=== PATIENT | male | born 2000 | race African-American/Black ===

== ENCOUNTER 2024-10-21 09:36 | Emergency (ER) | payer SELFPAY ==
[2024-10-21] MEDS ORDERED: HALOPERIDOL LACT 5 MG/ML INJ ONE (10:22)
[2024-10-21 10:34] LABS: Absolute Basophils 0.1 K/uL (0-0.5); Absolute Eosinophils 0.1 K/uL (0-0.5); Absolute Lymphocytes (CBC) 3.3 K/uL (0.7-4.9); Absolute Monocytes 0.5 K/uL (0.1-1.3); Absolute Neutrophil 1.5 K/uL (1.8-8.0); Basophils % 1.1 % (0-1.3); Eosinophils % 1.4 % (0-4.4); Hematocrit 44.8 % (39.6-49.0); Hemoglobin 15.8 g/dL (13.6-17.9); Lymphocytes % 60.5 % (15.3-44.8); MCH 32.5 pg (27.0-35.0); MCHC 35.3 g/dL (32.0-36.0); MCV 92.2 fL (80-100); MPV 7.8 fL (7.6-11.3); Monocytes % 9.3 % (3.3-12.3); Neutrophils % 27.7 % (41.7-73.7); Nucleated Red Blood Cells % 0.2 % (0-0); Platelets 272 thou/uL (152-406); RBC Red Blood Cell Count 4.86 M/uL (4.33-5.43); Red Cell Distribution Width 12.7 % (12.1-15.2)
[2024-10-21 10:43] LABS: PT Prothrombin Time 11.1 SECONDS (10-13.0); PTT, Activated Partial Thromb 32.7 SECONDS (27.2-37.4); Protime INR 0.97
[2024-10-21 10:46] LABS: Barbiturates NEGATIVE (NEGATIVE); Benzodiazepines NEGATIVE (NEGATIVE); Cocaine NEGATIVE (NEGATIVE); METHAMPHETAM NEGATIVE (NEGATIVE); Methadone NEGATIVE (NEGATIVE); Opiates NEGATIVE (NEGATIVE); Phencyclidine NEGATIVE (NEGATIVE); THC Cannibis POSITIVE (NEGATIVE)
[2024-10-21 10:55] LABS: ALT/SGPT 23 U/L (16-61); AST/SGOT 19 U/L (15-37); Albumin 4.4 g/dL (3.4-5.0); Albumin/Globulin Ratio 1.1 (1.1-1.8); Alkaline Phosphatase 78 U/L (45-117); Anion Gap 10.3 mEq/L (5.0-15.0); BUN Blood Urea Nitrogen 8 mg/dL (7-18); Bicarbonate 24 mEq/L (21-32); Bilirubin Direct 0.2 mg/dL (0-0.2); Bilirubin Indirect, Calculated 0.7 mg/dL (0.2-0.8); Bilirubin Total 0.9 mg/dL (0.2-1.0); Globulin 4.1 g/dL (2.3-3.5); Glomerular Filtration Rate 68 ml/min (=/>90); Glucose Level 110 mg/dL (74-106); Potassium 3.3 mEq/L (3.5-5.1); Protein, Total 8.5 g/dL (6.4-8.2); Sodium Level 136 mEq/L (136-145)
[2024-10-21] MEDS ORDERED: dexAMETHasone 10 MG/ML VIAL ONE (11:10)
[2024-10-21] MEDS ORDERED: methocarbamoL 500 MG TAB ONE (11:10)
[2024-10-21 12:41] LABS: Differential Total Cells Count 100; Segmented Neutrophils 26 % (40-80)
[2024-10-21 12:42] LABS: Atypical Lymphocytes 12 %; Blood Morphology Comment NOT SEEN (NOT SEEN); Eosinophils 2 % (0-3); Lymphocytes 53 % (15-42); Monocytes 7 % (0-10); Platelet Estimate ADEQ
--- NOTE | 2024-10-21 17:02 | ER ---
Nurse's Notes [facility] Name: Justo Campbell Age: 23 yrs Sex: Male : 2000 Arrival Date: 10/21/2024 Time: 09:36 Bed 20 Private MD: Diagnosis: Chronic back pain;Adjustment disorder Presentation: 10/21 09:45 Chief complaint: Patient states: Left low back pain, radiates up to head x 1 year. jl Coronavirus screen: At this time, the client does not indicate any symptoms associated with coronavirus-19. Ebola Screen: No symptoms or risks identified at this time. Initial Sepsis Screen: Does the patient meet any 2 criteria? No. Patient's initial sepsis screen is negative. Does the patient have a suspected source of infection? No. Patient's initial sepsis screen is negative. Risk Assessment: Do you want to hurt yourself or someone else? Patient reports no desire to harm self or others. Onset of symptoms was 2023. 09:45 Method Of Arrival: Wheelchair [facility] 09:45 Acuity: MUKESH 4 jl7 09:53 Note Pt expressed suicidal thoughts to MD, SI precautions initiated. jl7 09:53 Acuity: MUKESH 2 jl7 Triage Assessment: 09:47 General: Appears in no apparent distress. uncomfortable, Behavior is calm, cooperative, jl7 flat. Pain: Complains of pain in left low back Pain currently is 10 out of 10 on a pain scale. Neuro: Power Agitation-Sedation Scale (RASS): 0 - Alert and Calm Level of Consciousness is awake, alert, obeys commands, Oriented to person, place, time, situation. Cardiovascular: Patient's skin is warm and dry. Respiratory: Airway is patent Respiratory effort is even, unlabored, Respiratory pattern is regular, symmetrical. Derm: Skin is pink, warm \\T\\ dry. Musculoskeletal: Swelling absent. Historical: - Allergies: 09:47 Peanut; jl7 - Home Meds: 09:47 None [Active]; jl7 - PMHx: 09:47 None; jl7 - Immunization history:: Adult Immunizations unknown. - Infectious Disease History:: Denies. - Social history:: Smoking status: Reported history of juuling and/or vaping. Patient uses street drugs, marijuana. - Family history:: not pertinent. Screenin:47 [facility] ED Fall Risk Assessment (Adult) History of falling in the last 3 months, kn including since admission Yes- physiologic fall (2 pts) Confusion or Disorientation No (0 pts) Intoxicated or Sedated No (0 pts) Impaired Gait Yes (1 pt) Mobility Assist Device Used No (0 pt) Altered Elimination No (0 pt) Score/Fall Risk Level 3 or more points = High Risk Oriented to surroundings, Maintained a safe environment, Educated pt \\T\\ family on fall prevention, incl call for assistance when getting out of bed, Assessed \\T\\ reinforced patient's understanding of fall precautions, Hourly rounding (assess needs \\T\\ fall precautionary measures) done, Used ambulatory aids as needed (educated on \\T\\ assisted with), Remained with patient while ambulating. Abuse screen: Denies threats or abuse. Denies injuries from another. Nutritional screening: No deficits noted. Tuberculosis screening: No symptoms or risk factors identified. Assessment: 09:47 Pain: Complains of pain in back Pain radiates to back of left leg. Neuro: Power kn Agitation-Sedation Scale (RASS): 0 - Alert and Calm Level of Consciousness is Oriented to person, place, time, situation, Casing Material Weigher are equal bilaterally Moves all extremities. Gait is unsteady, Speech Cardiovascular: No deficits noted. Respiratory: No deficits noted. 09:54 Reassessment: Pt expressed suicidal thoughts to MD, SI precautions initiated. jl7 10:43 Reassessment: pt expressed SI with no plan, states hx of psych hx with therapy, did not kn answer inpatient or out patient, he refused to answer questions during SI assessment. while asking pt SI questions, pt became very agitated, uncooperative, banging head against mattress, yelling at staff. campus police at bedside with RN, CRN, MD mary. 11:00 Reassessment: Reassessment: pt became agitated, removed himself from monitoring and evaluation advisor, kn bp cuff, and pulse ox, redirection unsuccessful, will continue to monitor pt. MD aware, will replace pt to monitoring and evaluation advisor, bp cuff, and pulse ox once he calms down. 11:28 Reassessment: pt is calm, cooperative with meds given, pt placed on monitoring and evaluation advisor, bp kn cuff, and pulse ox, vss, will continue to monitor pt. 11:45 Reassessment: pt removed monitoring and evaluation advisor, bp cuff, pulse ox, walks with steady gait to kn and from restroom without incident multiple times. pt is medically cleared and waiting for [facility]. pt verbalizes understanding. 13:00 Reassessment: pt in bed, in no acute distress, ambulatory to and from restroom with kn steady gait, will continue to monitor pt. Sitter present. 15:00 Reassessment: pt in bed, in no acute distress, family at bedside, will continue to kn monitor pt. Sitter present. 17:00 Reassessment: pt in bed, in no acute distress, family at bedside, will continue to kn monitor pt. Sitter present. Psych: 10:00 [place] Suicide Severity Screening: In the past month, have you wished you were kn or wished you could go to sleep and not wake up? Patient responds "No." "In the past month, have you actually had any thoughts of killing yourself?" Patient responds "yes." "In your lifetime, have you ever done anything, started to do anything, or prepared to do anything to end your life?" Patient responds "no.". Subjective: Patient's mood is angry, irritable. Objective: Patient is uncooperative, belligerent, hostile. Interventions: Removed personal items and placed in bag. Patient placed in hospital gown. Searched person for dangerous items. Urine collected and sent for urine drug test. Belonging list filled out. Patient reassessed during use of restraints. Patient is physically safe. Patient's cardiac status is stable. Patient's respirations are even and unlabored. Patient has good circulation in all extremities as indicated by capillary refill < 3 seconds. Patient's ROM assessed and is intact. Patient nutrition and hydration needs will continue to be monitored and addressed. Patient hygiene and elimination needs met. Patient assessed for signs of distress. Patient remains reasonably comfortable at this time. Safety Checks: Personal items have been removed. Door is open. No visitors are present at this time. Pt denies substance abuse. Commitment: Patient will be a voluntary commitment. Vital Signs: 09:45 BP 147 / 99; Pulse 60; Resp 17; Temp 97.5; Pulse Ox 99% ; Weight 72.57 kg; Height 5 ft. jl7 11 in. ; Pain 10/10; 09:47 BP 147 / 99; Pulse 79; Resp 16; Pulse Ox 100% ; kn 11:22 BP 133 / 83; Pulse 75; Resp 16; Pulse Ox 99% ; kn 11:30 BP 128 / 72; Pulse 53; Resp 22; Pulse Ox 100% ; kn 17:25 BP 139 / 72; Pulse 84; Resp 18; Pulse Ox 99% ; kn 09:45 Body Mass Index 22.32 (72.57 kg, 180.34 cm) jl7 09:45 Pain Scale: Adult [facility] ED Course: 09:36 Patient arrived in ED. mr 09:37 Sandeep Jain MD is Attending Physician. rt 09:47 MIGUEL ÁNGEL HOYT, LUNA is Primary Nurse. kn 09:47 Triage completed. jl7 09:47 Arm band placed on right wrist. jl7 09:47 Patient has correct armband on for positive identification. Bed in low position. Call kn light in reach. Side rails up X2. Provided Education on: use of call light, fall precautions. 09:47 No provider procedures requiring assistance completed. kn 10:15 Inserted saline lock: 20 gauge in right antecubital area, using aseptic technique. kn Accessed Missed attempt(s): Patient did not have IV access during this emergency room visit. IV discontinued, IV d/c per pt. pt has moments of agitation, getting out of bed, standing with no issues, steady gait noted when pt moved from stretcher to chair. 10:45 NIBP on. Sitter at bedside. kn 10:52 monitor worker on. Pulse ox on. kn 10:52 EKG done, by ED staff, reviewed by Sandeep Jain MD. kn 11:31 called [facility] \\T\\ [phone] talked to Michael. sp 12:44 called [facility] to follow up talked to Milly. sp 14:24 visitor here . ( girlfriend Star). bc6 15:39 Anai with [facility] here . bc6 17:01 [facility] requesting out patient. bc6 Administered Medications: 10:35 Drug: Haloperidol IVP 5 mg IVP once Route: IVP; Site: left antecubital; jl7 11:24 Follow up: Response: No adverse reaction kn 11:14 CANCELLED (Physician Discretion): ns 0.9% 1000 ml IV at 1000 ml once; to be given as a kn bolus over 60 minutes 11:14 CANCELLED (Physician Discretion): Decadron - [id number] mg IVP once kn 11:14 CANCELLED (Physician Discretion): methocarbamol1 grams IVPB once over 1 hrs; (mix in NS kn 100 mL) 11:23 Drug: Dexamethasone IM 10 mg IM once Route: IM; Site: left gluteus; kn 12:00 Follow up: Response: No adverse reaction kn 11:24 Drug: Methocarbamol PO 1000 mg PO once Route: PO; kn 12:00 Follow up: Response: No adverse reaction Medication: 09:47 VIS not applicable for this client. Outcome: 17:01 Discharge ordered by . rt 17:31 Patient left the ED. hb 17:36 Discharged to home ambulatory, with family, with friend, kn 17:36 Condition: stable 17:36 Discharge instructions given to patient, Instructed on discharge instructions, follow up and referral plans. Signatures: Char Alejo Mary, Reg Reg mr Joseline Rivera, RN RN Javi Sainz RN RN jl7 Sanedep Jain MD MD rt Martha Irene6 MIGUEL ÁNGEL HOYT RN RN kn Corrections: (The following items were deleted from the chart) 11:02 10:43 Reassessment: pt expressed SI with no plan, states hx of psych hx with therapy, kn did not answer inpatient or out patient. while asking pt SI questions, pt became very agitated, uncooperative, banging head against mattress, yelling at staff. campus police at bedside with RN, mary ALCALA MD kn 11:28 11:22 Patient is placed in psych hold kn 11:32 11:00 Reassessment: kn 11: 11:04 Reassessment: kn 13:31 13:27 Reassessment: pt removed monitoring and evaluation advisor, bp cuff, pulse ox. kn kn
--- NOTE | 2024-10-21 17:02 | EDPHYS ---
Physician Documentation [facility] Name: Justo Campbell Age: 23 yrs Sex: Male : 2000 Arrival Date: 10/21/2024 Time: 09:36 Bed 20 Private MD: ED Physician Sandeep Jain HPI: 10/21 09:52 This 23 yrs old Black Male presents to ER via Wheelchair with complaints of Back Pain. rt 09:52 Patient presents to the ED with back pain for about 1 year. States that it started in rt the upper back, rates down the left leg and radiates superiorly. Patient states it has been getting worse, states that he is "disabled" from the pain. States that he called the suicide hotline. When asked, patient said that he was having suicidal thoughts, when asked if he had a plan, he stated "I do not want to elaborate." Denies other acute complaints at this time, symptoms are moderate in severity, no other aggravating or elevating factors.. Historical: - Allergies: 09:47 Peanut; jl7 - Home Meds: 09:47 None [Active]; jl7 - PMHx: 09:47 None; jl7 - Immunization history:: Adult Immunizations unknown. - Infectious Disease History:: Denies. - Social history:: Smoking status: Reported history of juuling and/or vaping. Patient uses street drugs, marijuana. - Family history:: not pertinent. ROS: 09:52 Constitutional: Negative for fever, chills, and weight loss, Cardiovascular: Negative rt for chest pain, palpitations, and edema, Respiratory: Negative for shortness of breath, cough, wheezing, and pleuritic chest pain, Abdomen/GI: Negative for abdominal pain, nausea, vomiting, diarrhea, and constipation, 09:52 Back: Positive for pain at rest, pain with movement, Negative for injury or acute deformity, 09:52 Psych: Positive for suicidal ideation, Exam: 09:52 Constitutional: This is a well developed, well nourished patient who is awake, alert, rt and in no acute distress. Head/Face: Normocephalic, atraumatic. Chest/axilla: Normal chest wall appearance and motion. Nontender with no deformity. No lesions are appreciated. Cardiovascular: Regular rate and rhythm with a normal S1 and S2. No gallops, murmurs, or rubs. Normal PMI, no JVD. No pulse deficits. Respiratory: Lungs have equal breath sounds bilaterally, clear to auscultation and percussion. No rales, rhonchi or wheezes noted. No increased work of breathing, no retractions or nasal flaring. Abdomen/GI: Soft, non-tender, with normal bowel sounds. No distension or tympany. No guarding or rebound. No evidence of tenderness throughout. Skin: Warm, dry with normal turgor. Normal color with no rashes, no lesions, and no evidence of cellulitis. MS/ Extremity: Pulses equal, no cyanosis. Neurovascular intact. Full, normal range of motion. 09:52 Back: No focal areas of tenderness, 09:52 Psych: Appears somewhat disorganized, reports suicidal ideation. 11:04 ECG was reviewed by the Attending Physician. rt Vital Signs: 09:45 BP 147 / 99; Pulse 60; Resp 17; Temp 97.5; Pulse Ox 99% ; Weight 72.57 kg; Height 5 ft. jl7 11 in. ; Pain 10/10; 09:47 BP 147 / 99; Pulse 79; Resp 16; Pulse Ox 100% ; kn 11:22 BP 133 / 83; Pulse 75; Resp 16; Pulse Ox 99% ; kn 11:30 BP 128 / 72; Pulse 53; Resp 22; Pulse Ox 100% ; kn 17:25 BP 139 / 72; Pulse 84; Resp 18; Pulse Ox 99% ; kn 09:45 Body Mass Index 22.32 (72.57 kg, 180.34 cm) jl7 09:45 Pain Scale: Adult jl7 MDM: 09:38 Medical Screening Exam initiated rt 18:41 Differential diagnosis: Chronic back pain, suicidal ideation, adjustment disorder. Data rt reviewed: vital signs, nurses notes, lab test result(s). Consideration of Admission/Observation Escalation of care including admission/observation considered. Consider transfer for psychiatric evaluation, patient evaluated by vijay Parada, discussed with Venu Parada, believes that he has chronic passive suicidal ideations with no active plan. At this time, he does not appear to be in imminent threat to himself nor others nor is gravely disabled, does not require involuntary psychiatric hospitalization, outpatient resources given to the patient.. I considered the following discharge prescriptions or medication management in the emergency department Medications were administered in the Emergency Department. See MAR. Test considered but Not performed: CT: Back pain is chronic, no trauma, CT scan, is not indicated. Counseling: I had a detailed discussion with the patient and/or guardian regarding the historical points, exam findings, and any diagnostic results supporting the discharge/admit diagnosis, lab results, the need for outpatient follow up. Response to treatment: the patient's symptoms have markedly improved after treatment. 10/21 09:52 Order name: Acetaminophen; Complete Time: 11:14 rt 10/21 09:52 Order name: Basic Metabolic Panel; Complete Time: 11: rt 10/21 09:52 Order name: CBC with Diff; Complete Time: 12:51 rt 10/21 09:52 Order name: ETOH Level; Complete Time: 11: rt 10/21 09:52 Order name: Hepatic Function; Complete Time: 11: rt 10/21 09:52 Order name: PT-INR; Complete Time: 11: rt 10/21 09:52 Order name: Ptt, Activated; Complete Time: 11: rt 10/21 09:52 Order name: Salicylate; Complete Time: 11:23 rt 10/21 09:52 Order name: Urine Drug Screen; Complete Time: 11:14 rt 10/21 10:38 Order name: Manual Differential; Complete Time: 12:51 EDMS 10/21 09:52 Order name: EKG - Nurse/Tech; Complete Time: 11:07 rt 10/21 09:52 Order name: IV Saline Lock; Complete Time: 11: rt 10/21 09:52 Order name: Labs collected and sent; Complete Time: 11: rt 10/21 09:52 Order name: Suicide Precautions; Complete Time: 13:03 rt 10/21 09:52 Order name: Suicide Screening ([place]); Complete Time: 13:03 rt EC:04 Rate is 72 beats/min. Rhythm is regular, Normal Sinus Rhythm with No ectopy. QRS [place] rt is Normal. [place] interval is normal. QRS interval is normal. QT interval is normal. No Q waves. Administered Medications: 10:35 Drug: Haloperidol IVP 5 mg IVP once Route: IVP; Site: left antecubital; jl7 11:24 Follow up: Response: No adverse reaction 11:14 CANCELLED (Physician Discretion): ns 0.9% 1000 ml IV at 1000 ml once; to be given as a kn bolus over 60 minutes 11:14 CANCELLED (Physician Discretion): Decadron - [id number] mg IVP once kn 11:14 CANCELLED (Physician Discretion): methocarbamol1 grams IVPB once over 1 hrs; (mix in NS kn 100 mL) 11:23 Drug: Dexamethasone IM 10 mg IM once Route: IM; Site: left gluteus; kn 12:00 Follow up: Response: No adverse reaction kn 11:24 Drug: Methocarbamol PO 1000 mg PO once Route: PO; kn 12:00 Follow up: Response: No adverse reaction kn Disposition Summary: 10/21/24 17:01 Discharge Ordered Notes: Location: Home rt Problem: new rt Symptoms: have improved rt Condition: Stable rt Diagnosis - Chronic back pain rt - Adjustment disorder rt Followup: rt - With: Private Physician - When: 2 - 3 days - Reason: Discharge Instructions: - Discharge Summary Sheet rt - Chronic Back Pain rt - Suicidal Feelings: How to Help Yourself rt Forms: - Medication Reconciliation Form rt - Antibiotic Education rt - Prescription Opioid Use rt - Patient Portal Instructions rt - Leadership Thank You Letter rt Prescriptions: - Cyclobenzaprine 10 mg Oral tablet - take 1 tablet ORAL route every 8 hours As needed; 15 tablet; Refills: 0, rt Product Selection Permitted - Medrol (Darin) 4 mg Oral Tablets, Dose Pack - take 1 tablet ORAL route as directed - follow package instructions; 1 packet; rt Refills: 0, Product Selection Permitted Signatures: Dispatcher [employer] Javi Levine RN RN jl7 Sandeep Jain MD MD rt MIGUEL ÁNGEL HOYT RN RN kn Corrections: (The following items were deleted from the chart) 09:52 09:52 ACETAMINOPHEN+C.LAB.BRZ ordered. EDMS EDMS 09:52 09:52 BASIC METABOLIC PANEL+C.LAB.BRZ ordered. EDMS EDMS 09:52 09:52 CBC+H.LAB.BRZ ordered. EDMS EDMS 09:52 09:52 ETHANOL+C.LAB.BRZ ordered. EDMS EDMS 09:52 09:52 HEPATIC FUNCTION+C.LAB.BRZ ordered. EDMS EDMS 09:52 09:52 PROTIME (+INR)+COAG.LAB.BRZ ordered. EDMS EDMS 09:52 09:52 PTT, ACTIVATED+COAG.LAB.BRZ ordered. EDMS EDMS 09:52 SALICYLATE+C.LAB.BRZ ordered. EDMS EDMS 09:52 URINE DRUG SCREEN+UC.LAB.BRZ ordered. EDMS EDMS : 09:52 NS 0.9% IV 1000 ml IV at 1000 ml once; to be given as a bolus over 60 minutes kn ordered. rt 09:52 Decadron - Dexamethasone IVP 10 mg IVP once ordered. rt kn : 09:52 Methocarbamol IVPB 1 grams IVPB once over 1 hrs; (mix in NS 100 mL) ordered. rt kn
[2024-10-21 17:54] VITALS: TEMP 97.5
[2024-10-21 17:59] VITALS: BP 128/72; O2SAT 100
--- NOTE | 2024-10-22 12:20 | EKG ---
Test Date: 2024-10-21 Test Time: 10:52:19 Furniture Cleaner: [id number] MEASUREMENT RESULTS: Intervals: Rate: 72 [place]: 198 QRSD: 100 QT: 392 QTc: 429 [place]: P: 64 [place]: 198 QRS: 84 T: 54 INTERPRETIVE STATEMENTS: Normal sinus rhythm with sinus arrhythmia Nonspecific ST abnormality Abnormal ECG No previous ECG available for comparison Electronically Signed On 10-22-24 12:17:46 CDT by Dylan Rabago
== END 2024-10-21 17:31 | disposition home or self-care (01) ==
LOC: ER 09:36
DX: M54.9 Dorsalgia, unspecified (principal); F43.20 Adjustment disorder, unspecified
CPT/HCPCS: 36415; 80048; 80076; 80143; 80179; 80307; 82077; 85025; 85610; 85730; 93005; 96372; 96374; 99285; J1100; J1630